=== PATIENT | female | born 1985 | race Caucasian/White ===

== ENCOUNTER 2022-02-14 00:02 | Inpatient (IN) | payer BC ==
[~2022-02-14 00:02] MED LIST: Acetaminophen 325 MG Tab PO PRN; Carboprost Tromethamine 250 MCG/1 ML Amp IM PRN; Lidocaine 1% 30 ML SDV INJECT PRN; Methylergonovine 0.2 MG/1 ML Amp IM PRN; Misoprostol 25 MCG (1/4 of 100 MCG) Tab VAG PRN; Misoprostol 400 MCG (4 X 100 MCG TAB) RECTAL PRN; Nalbuphine 20 MG/1 ML Amp IM PRN; Ondansetron 4 MG/2 ML SDV IVPUSH PRN; Oxytocin/Normal Saline 30 UNIT/500 ML BAG IV SCH; Sodium Chloride 0.9% 10 ML Syringe FLUSH PRN; Tranexamic Acid 1,000 MG in Sodium Chloride 0.9% 100 ML IV PRN
[2022-02-14] MEDS: Lactated Ringers 1,000 ML IV SCH ×4 (02:00→20:08)
[2022-02-14] MEDS ORDERED: Oxytocin/Normal Saline 30 UNIT/500 ML BAG IV ONE (02:55)
[2022-02-14] MEDS: Sodium Chloride 0.9% 10 ML Syringe FLUSH SCH (03:45)
[2022-02-14] MEDS ORDERED: fentaNYL 100 MCG/2 ML SDV IVPUSH ONE (17:12)
[2022-02-14] MEDS ORDERED: Morphine PF 1 MG/ML Amp ITHECAL ONE (20:48)
[2022-02-15] MEDS: Sodium Chloride 0.9% 10 ML Syringe FLUSH SCH ×3 (00:56→09:48)
[2022-02-15] MEDS ORDERED: Oxytocin 10 Units/1 ML SDV IM PRN (02:06)
[2022-02-15] MEDS ORDERED: Citric Acid/Sodium Citrate Solution 30 ML Cup PO ONE (02:06)
[2022-02-15] MEDS ORDERED: Sodium Chloride 0.9% 10 ML Syringe FLUSH PRN (02:06)
[2022-02-15] MEDS ORDERED: Methylergonovine 0.2 MG Tab PO PRN (02:06)
[2022-02-15] MEDS ORDERED: ceFAZolin 2 GM in Premix Bag 1 BAG IV ONE (02:06)
[2022-02-15] MEDS ORDERED: Oxytocin/Normal Saline 30 UNIT/500 ML BAG IV SCH (02:15)
[2022-02-15] MEDS ORDERED: Methylergonovine 0.2 MG/1 ML Amp ONE (03:20)
[2022-02-15] MEDS ORDERED: Ondansetron 4 MG/2 ML SDV IV ONE (03:30)
[2022-02-15] MEDS ORDERED: Methylergonovine 0.2 MG/1 ML Amp IV ONE (03:30)
[2022-02-15] MEDS ORDERED: Dexamethasone 4 MG/ML SDV IV ONE (03:30)
[2022-02-15] MEDS ORDERED: fentaNYL 100 MCG/2 ML SDV ONE (03:30)
[2022-02-15] MEDS ORDERED: Naloxone 2 MG/2 ML Syringe IVPUSH PRN (03:58)
[2022-02-15] MEDS ORDERED: diphenhydrAMINE 50 MG/ML SDV IVPUSH PRN (03:58)
[2022-02-15] MEDS ORDERED: ePHEDrine 50 MG/ML SDV IVPUSH PRN (03:58)
[2022-02-15] MEDS ORDERED: Ketorolac 30 MG/ML SDV IVPUSH ONE (04:36)
[2022-02-15] MEDS: Lactated Ringers 1,000 ML IV SCH ×2 (04:50→11:14)
[2022-02-15] MEDS: Simethicone 80 MG Tab.Chew PO SCH ×4 (09:47→22:30)
[2022-02-15] MEDS: Prenatal Multivitamin with Calcium/Folic Acid/Iron Tab PO SCH (09:47)
[2022-02-15] MEDS ORDERED: Ketorolac 30 MG/ML SDV IVPUSH SCH (10:00)
[2022-02-15] MEDS: Ketorolac 30 MG/ML SDV IVPUSH SCH ×3 (11:11→22:31)
[2022-02-15] MEDS: Docusate Sodium 100 MG Cap PO PRN (23:47)
[2022-02-15] MEDS: Acetaminophen/oxyCODONE 325-5 MG Tab PO PRN (23:47)
[2022-02-16] MEDS ORDERED: Ibuprofen 800 MG Tab PO PRN (04:00)
[2022-02-16] MEDS: Acetaminophen/oxyCODONE 325-5 MG Tab PO PRN ×3 (06:24→22:36)
[2022-02-16] MEDS: Ibuprofen 800 MG Tab PO PRN ×2 (06:25→16:23)
[2022-02-16] MEDS: Witch Hazel Medicated Pads 100/Jar TOP PRN ×2 (06:26→16:37)
[2022-02-16] MEDS: Sodium Chloride 0.9% 10 ML Syringe FLUSH SCH ×2 (10:15→23:05)
[2022-02-16] MEDS: Prenatal Multivitamin with Calcium/Folic Acid/Iron Tab PO SCH (10:16)
[2022-02-16] MEDS: Simethicone 80 MG Tab.Chew PO SCH ×4 (10:16→22:36)
[2022-02-16] MEDS: Docusate Sodium 100 MG Cap PO PRN (22:36)
[2022-02-17] MEDS: Acetaminophen/oxyCODONE 325-5 MG Tab PO PRN ×3 (08:02→20:52)
[2022-02-17] MEDS: Prenatal Multivitamin with Calcium/Folic Acid/Iron Tab PO SCH (08:03)
[2022-02-17] MEDS: Simethicone 80 MG Tab.Chew PO SCH ×4 (08:03→20:54)
[2022-02-17] MEDS: Ibuprofen 800 MG Tab PO PRN (20:50)
[2022-02-17] MEDS: Docusate Sodium 100 MG Cap PO PRN (20:52)
[2022-02-18] MEDS: Acetaminophen/oxyCODONE 325-5 MG Tab PO PRN ×3 (02:31→11:23)
[2022-02-18] MEDS: Ibuprofen 800 MG Tab PO PRN (06:36)
[2022-02-18] MEDS: Simethicone 80 MG Tab.Chew PO SCH (11:22)
[2022-02-18] MEDS: Prenatal Multivitamin with Calcium/Folic Acid/Iron Tab PO SCH (11:23)
[2022-02-18] MEDS: Docusate Sodium 100 MG Cap PO PRN (11:23)
== END 2022-02-18 12:55 | disposition home or self-care (01) | DRG 540 ==
LOC: DL.OB 00:02 → PREINTOOBSV 18:29 → OBSVTOIN 02-15 03:25
PROVIDERS: ADMIT Family Medicine; ATTEND Family Medicine
PROC: 10D00Z1 Extraction of Products of Conception, Low, Open Approach (ICD-10-PCS; principal; 2022-02-15)
DX: O48.0 Post-term pregnancy (principal); O76 Abnormality in fetal heart rate and rhythm complicating labor and delivery; Z20.822 Contact with and (suspected) exposure to COVID-19; O62.2 Other uterine inertia; O69.81X0 Labor and delivery complicated by cord around neck, without compression, not applicable or unspecified; Z3A.41 41 weeks gestation of pregnancy; Z37.0 Single live birth; Z88.0 Allergy status to penicillin; Z91.048 Other nonmedicinal substance allergy status; Z91.09 Other allergy status, other than to drugs and biological substances
CPT/HCPCS: 01961; 36415; 62320; 81003; 82565; 82570; 83615; 84156; 84450; 84460; 84520; 84550; 85027; 86850; 86900; 86901; 94010; A9270-GY; J0690; J1100; J1200; J1885; J2210; J2274; J2300; J2405; J2590; J3010; J7120; U0002